=== PATIENT | female | born 1960 | race Caucasian/White ===

== ENCOUNTER 2017-08-07 15:15 | Emergency (ER) | payer OTHER, BC ==
[~2017-08-07] VITALS: Ht 170.2 cm; Wt 61.2 kg
[2017-08-07 15:26] VITALS: BP_SYST 143
--- NOTE | 2017-08-07 15:27 | NUR ---
Patient to ER bed 1 to gown for evaluation. Side rails up. Report received from EDMUNDO Katz.
--- NOTE | 2017-08-07 15:28 | NUR ---
Pt was brought in by ALS for right lower back pain s/p falling off her horse. Pt states she was riding her horse and fell on her right hip. Pt denies losing consciousness and N/V. Pt states she was able to ambulate to call 911 but was unable to sit down or move right extremity. No other injuries/complaints per patient or noted.
--- NOTE | 2017-08-07 15:29 | NUR ---
ER Dr. Terrazas at bedside examining patient.
[2017-08-07] MEDS ORDERED: HYDROmorphone 1 MG INJ. 1 MG/ML AMPUL IVP ONE (15:45)
[2017-08-07] MEDS ORDERED: ONDANSETRON HCL 4 MG/2 ML VIAL IVP ONE (15:45)
[2017-08-07] MEDS ORDERED: HYDROmorphone 2 MG/ML VIAL ONE (15:48)
[2017-08-07] MEDS ORDERED: DIPHENHYDRAMINE INJ 50 MG/ML VIAL IVP ONE (16:00)
--- NOTE | 2017-08-07 16:30 | NUR ---
Pt went to radiology in stable condition.
--- NOTE | 2017-08-07 16:45 | NUR ---
patient returned from radiology in stable condition.
--- NOTE | 2017-08-07 17:21 | NUR ---
ER Dr. Terrazas at bedside explaining results to patient.
[2017-08-07] MEDS ORDERED: KETOROLAC TROMETHAMINE 30 MG VIAL IVP ONE (18:15)
--- NOTE | 2017-08-07 18:17 | NUR ---
Medication was given, pt tolerated well. No adverse reaction, will continue to monitor.
--- NOTE | 2017-08-07 18:54 | NUR ---
Patient given written and verbal discharge instructions and verbalizes understanding. ER MD discussed with patient the results and treatment provided. Patient in stable condition. ID arm band removed. IV catheter removed intact and dressing applied, no active bleeding. Patient is on pain management and has medications at home. Patient educated on pain management and to follow up with PMD. Pain Scale 0/10 while at rest. Opportunity for questions provided and answered.
[2017-08-07 18:56] VITALS: BP_SYST 113
== END 2017-08-07 18:56 | disposition home or self-care (01) ==
LOC: SED 15:15
DX: S32.029A Unspecified fracture of second lumbar vertebra, initial encounter for closed fracture (principal); S32.039A Unspecified fracture of third lumbar vertebra, initial encounter for closed fracture; Z88.6 Allergy status to analgesic agent; V80.010A Animal-rider injured by fall from or being thrown from horse in noncollision accident, initial encounter; Y93.52 Activity, horseback riding; Y92.89 Other specified places as the place of occurrence of the external cause; Y99.8 Other external cause status
CPT/HCPCS: 72131; 72192; 96374; 96375; 99284; J1170; J1200; J1885; J2405